=== PATIENT | male | born 1970 | race Caucasian/White ===

== ENCOUNTER → 2018-06-24 | Outpatient (CLI) | payer OTHER ==
--- NOTE | 2018-06-24 09:07 | REP ---
Duplex extremity venous ultrasound: Left lower extremity. History: Panel left leg. Question DVT. Findings: The deep veins are anechoic and fully compressible from the groin to the popliteal fossa in the left lower extremity. Color flow imaging is homogeneous. Spectral Doppler interrogation demonstrates intact respiratory variation in flow and normal manual augmentation of flow. There is no evidence of deep vein thrombosis. Impression: Negative left lower extremity duplex venous ultrasound. No evidence of deep vein thrombosis. Electronically Signed by Howard Umana MD 06/24/2018 08:58 A
--- NOTE | 2018-06-24 09:19 | REP ---
Left calf ultrasound in the area of pain posteromedially at the mid calf: The patient states that he injured the left calf while running 1 week ago. Ultrasonography is performed in the area of left calf pain. There is a focal intramuscular ovoid hypoechoic zone in the area of pain, compatible with hematoma measuring 2.9 x 0.5 x 1.4 cm. This is likely within the soleus muscle. Impression: Findings are compatible with hematoma as described, likely within the soleus muscle. Electronically Signed by Hernan Michel MD 06/24/2018 09:11 A
== END ==
LOC: M RAD 06:04
PROVIDERS: ATTEND Clinical Nurse Specialist Psychiatric/Mental Health, Adult
DX: M79.605 Pain in left leg (principal)